=== PATIENT | male | born 1985 | race Caucasian/White ===

== ENCOUNTER → 2021-09-17 12:16 | Outpatient (CLI) | payer BC, SELFPAY ==
--- NOTE | ~2021-09-17 | CT_ITS ---
EXAMINATION: CT brain wo con DATE: 09/17/2021 12:52 INDICATION: Headache TECHNIQUE: Computed tomography (CT) of the head was performed without intravenous contrast. Sagittal and coronal reconstructions were performed. The mA was adjusted according to patient size. Iterative reconstruction technique was employed. The dose-length product was 599.57 mGy-cm. COMPARISON: None FINDINGS: No acute intracranial hemorrhage, acute infarction or abnormal extra axial fluid collection. Ventricl es are normal and symmetric. No mass/mass effect. The orbits, paranasal sinuses and mastoid air cells are normal. IMPRESSION: 1. Normal head CT. Reviewed, dictated and finalized at location . [employer]IAN IMPRESSION: 1. Normal head CT.
== END ==
PROVIDERS: PCP Nurse Practitioner Family; Visit Provider Nurse Practitioner Family
DX: R51.9 Headache, unspecified (principal)
CPT/HCPCS: 70450

== ENCOUNTER 2023-08-29 01:14 | Day surgery (SDC) | payer OTHER, SELFPAY ==
[2023-08-19 11:50] VITALS: BMI 25.7
--- NOTE | 2023-08-27 09:43 | SUR.PREOP ---
Patient called regarding upcoming procedure. Message left on patient's voicemail regarding preop instructions, appointment times, and procedure prep.
--- NOTE | 2023-08-28 17:37 | PM.HPGS ---
History of Present Illness History of Present Illness Consent: Risks, benefits, and alternatives have been discussed and questions answered. Patient agrees to proceed with procedure. Chief complaint: hx colon polyps, family hx colon ca Narrative: Samir Perez is a 37 year old male Referred for colon cancer screening due to a family history of colon cancer. He also has a history of polyps. Review of Systems Review of Systems: All systems reviewed & are unremarkable except as noted in HPI and below PMFSH Social History Social History Smoking packs per day: 1 Smoking cigarettes per day: 20.0 Years smoked: 2 Smoking pack-years: 2.00 Smoking status: Former smoker Alcohol intake: never Substance use: never Substance use type: does not use Living arrangements: with family Spiritual care concerns: No Meds Home Medications and Allergies Home Medications Medication Instructions Recorded Confirmed Type amitriptyline 100 mg tablet 100 mg PO DAILY 08/19/23 08/29/23 History fluvoxamine 100 mg tablet 100 mg PO DAILY 08/19/23 08/29/23 History rosuvastatin 5 mg tablet 5 mg PO DAILY 08/19/23 08/29/23 History Allergies Allergy/AdvReac Type Severity Reaction Status Date / Time No Known Allergies Allergy Verified 08/29/23 06:43 Exam Const: General: alert Orientation/consciousness: patient oriented x3 Resp: Auscultation: clear to auscultation bilaterally Cardio: Rhythm: regular rhythm GI: GI Palp: Yes Soft to palpation and No Tenderness to palpation present (GI) Neuro: General: patient oriented x3 Assessment and Plan Assessment and plan (1) Colon cancer screening: Code(s): Z12.11 - Encounter for screening for malignant neoplasm of colon Status: Acute Assessment and Plan: Colonoscopy with possible biopsy or polypectomy or cautery or injection of substances. (2) Family history of colon cancer: Code(s): Z80.0 - Family history of malignant neoplasm of digestive organs Status: Acute
[2023-08-29 06:44] VITALS: BP 126/86; PULSE 75; RESP 16; TEMP 35.9; O2SAT 100
[2023-08-29] MEDS: LACTATED RINGERS 1,000 ML 150 ML IV CONT (06:56)
--- NOTE | 2023-08-29 07:45 | WPDANESEPPF ---
Anes - Initial Pre Proc Eval Procedure: Operation Date: 08/29/23 08:00 Proposed Procedures p Colonoscopy - Brian Velazquez MD Date/Time: 08/29/23 07:45 Surgeon: Brian Velazquez MD Pre Op Diagnosis: hx colon polyps, family hx colon ca Patient Data Age: 37 Gender: M Height: 1.83 m Weight: 86.9 kg Last Vital Signs Temp 96.6 F L 08/29/23 06:44 Pulse 75 08/29/23 06:44 Resp 16 08/29/23 06:44 BP 126/86 08/29/23 06:44 Pulse Ox 100 08/29/23 06:44 O2 Del Method Room Air 08/29/23 06:44 Allergies Allergy/AdvReac Type Severity Reaction Status Date / Time No Known Allergies Allergy Verified 08/29/23 06:43 Home Medications Medication Instructions Recorded Confirmed Type amitriptyline 100 mg tablet 100 mg PO DAILY 08/19/23 08/29/23 History fluvoxamine 100 mg tablet 100 mg PO DAILY 08/19/23 08/29/23 History rosuvastatin 5 mg tablet 5 mg PO DAILY 08/19/23 08/29/23 History Patient hx anesthesia problems: none Family hx anesthesia problems: none Results Review: All pre-operative results and documents have been reviewed as part of the pre-operative evaluation. [facility] Social History Social History Smoking packs per day: 1 Smoking cigarettes per day: 20.0 Years smoked: 2 Smoking pack-years: 2.00 Smoking status: Former smoker Alcohol intake: never Substance use: never Substance use type: does not use Living arrangements: with family Spiritual care concerns: No Anes - Eval Final PreProcedure Day of Procedure 08/29/23 07:45 Patient weight: normal Heart: regular rate and rhythm Lungs: clear to auscultation Airway: Mallampati scale class II Neurological: alert and oriented Last oral intake: >/= 8 hours ASA classification: II Emergent: no Anesthetic plan: proceed Anesthesia type and monitoring: general GIVS and standard monitoring Results Review: All pre-operative results and documents have been reviewed as part of the pre-operative evaluation. Informed Consent: The patient's anesthetic plan and its attendant risks and benefits were discussed with the patient/family/POA. Questions were solicited and answers provided to the satisfaction of the patient/family/POA.
[2023-08-29 08:05] VITALS: BP 104/78; PULSE 72; RESP 26; O2SAT 100
[2023-08-29 08:15] VITALS: BP 125/80; PULSE 65; RESP 16; O2SAT 100
[2023-08-29 08:25] VITALS: BP 126/78; PULSE 66; RESP 15; O2SAT 100
== END 2023-08-29 08:30 | disposition home or self-care (01) ==
PROVIDERS: PCP Nurse Practitioner Family; Visit Provider Internal Medicine Gastroenterology
PROC: 0DJD8ZZ Inspection of Lower Intestinal Tract, Via Natural or Artificial Opening Endoscopic (ICD-10-PCS; CPT 45378; principal; 2023-08-29 08:00)
DX: Z12.11 Encounter for screening for malignant neoplasm of colon (principal); Z86.010 Personal history of colon polyps; Z80.0 Family history of malignant neoplasm of digestive organs; Z87.891 Personal history of nicotine dependence
CPT/HCPCS: 45378; J2704; J7120